=== PATIENT | male | born 1965 ===

== ENCOUNTER 2017-09-03 10:05 | Emergency (ER) | payer SELFPAY ==
[2017-09-03 10:07] VITALS: BP 103/62; PULSE 70; RESP 16; TEMP 98; O2SAT 100; BMI 29.2
--- NOTE | 2017-09-03 10:29 | ED PDOC ---
Lower Extremity Pain/Injury Time Seen by Provider: 09/03/17 10:14 Chief Complaint (Nursing): Lower Extremity Problem/Injury Chief Complaint (Provider): Left knee pain, fall last night History Per: Patient Onset/Duration Of Symptoms: Days Current Symptoms Are (Timing): Still Present Severity: Moderate Additional Complaint(s): Pt states he was going down the steps last night and missed a step, hitting his left knee. PT reports localized pain at patella and proximal tibia. Pt denies head injury. Pt does not want anything for pain at this time becuase he reports stomach upset with a lot of medications. Past Medical History Reviewed: Historical Data, Nursing Documentation, Vital Signs Vital Signs: Last Vital Signs Temp 98.0 F 09/03/17 10:07 Pulse 70 09/03/17 10:07 Resp 16 09/03/17 10:07 BP 103/62 09/03/17 10:07 Pulse Ox 100 09/03/17 10:07 - Medical History PMH: Gastritis Denies: HIV, Chronic Kidney Disease - Surgical History Surgical History: Endoscopy - Family History Family History: States: Unknown Family Hx - Living Arrangements Living Arrangements: With Family - Social History Current smoker - smoking cessation education provided: No - Home Medications Home Medications: Ambulatory Orders Medication Instructions Recorded Pantoprazole [Protonix EC Tab] 40 mg PO DAILY #30 ect 08/18/16 Ranitidine HCl 150 mg PO BID #60 tablet 08/18/16 Dicyclomine [Bentyl] 20 mg PO TID #30 tab 09/01/16 - Allergies Allergies/Adverse Reactions: Allergies Allergy/AdvReac Type Severity Reaction Status Date / Time Iodinated Contrast- Oral and Allergy ITCHING Verified 08/24/16 01:48 IV Dye Review of Systems ROS Statement: Except As Marked, All Systems Reviewed And Found Negative Musculoskeletal: Positive for: Leg Pain (Left knee ) Skin: Negative for: Bruising Physical Exam - Reviewed Nursing Documentation Reviewed: Yes Vital Signs Reviewed: Yes - Physical Exam Appears: Positive for: Well, Non-toxic, No Acute Distress Head Exam: Positive for: ATRAUMATIC, NORMAL INSPECTION, NORMOCEPHALIC Skin: Positive for: Normal Color, Warm, DRY Eye Exam: Positive for: Normal appearance ENT: Positive for: Normal ENT Inspection Neck: Positive for: Normal, Painless ROM Respiratory: Negative for: Accessory Muscle Use, Respiratory Distress Back: Positive for: Normal Inspection Extremity: Positive for: Normal ROM Neurologic/Psych: Positive for: Alert, Oriented - ECG O2 Sat by Pulse Oximetry: 100 Medical Decision Making Medical Decision Making: Knee x-ray as read by ER PA - No acute fracture or dislocation. Disposition - Clinical Impression Clinical Impression: Knee injury, Abrasion - Patient ED Disposition Is Patient to be Admitted: No Counseled Patient/Family Regarding: Diagnosis - Disposition Disposition: Routine/Home Disposition Time: 11:19 Condition: GOOD Instructions: Abrasion (ED) Forms: [facility] (Sami) Print Language: WELSH
--- NOTE | 2017-09-03 12:46 | RAD ---
PROCEDURE: Left Knee Radiographs. HISTORY: Pain. COMPARISON: None. FINDINGS: BONES: No acute fracture. JOINTS: Unremarkable. JOINT EFFUSION: None. OTHER FINDINGS: None. IMPRESSION: No demonstrated fracture or dislocation.
== END 2017-09-03 11:44 | disposition home or self-care (01) ==
LOC: H.ER 10:05
DX: S89.92XA Unspecified injury of left lower leg, initial encounter (principal); W19.XXXA Unspecified fall, initial encounter; Y92.89 Other specified places as the place of occurrence of the external cause